=== PATIENT | male | born 1980 | race Caucasian/White ===

== ENCOUNTER 2019-07-30 08:33 | Emergency (ER) | payer BC, OTHER ==
--- NOTE | 2019-07-30 08:40 | EDM.PDOC ---
ED HPI GENERAL MEDICAL PROBLEM - General Stated Complaint: COUGH,DIFF BREATHING Time Seen by Provider: 07/30/19 08:40 Source of Information: Reports: Patient History Limitations: Reports: No Limitations - History of Present Illness INITIAL COMMENTS - FREE TEXT/NARRATIVE: Is a 39-year-old male who is complaining of an upper respiratory cough for the past 5 weeks. Cough is nonproductive but patient does feel dyspnea on exertion. He has been seen twice before at other centers and was initially started on amoxicillin and 2 weeks ago started on doxycycline. He has had no improvement in symptoms. Is any fever or chills. Is also treated with some steroid shot and albuterol inhaler over the last 2 weeks. Is not a cigarette smoker and does have any history of bronchitis or pneumonias. He has been traveling back and forth to [place] and around the counts include 234 beds at the [facility] and is exposed to approximately 50-60 people per day at work. He has not been nauseous or vomiting. She had no bloody or tarry stools. He has no swelling to his ankles or calfs. Duration: Week(s): (5), Getting Worse Location: Reports: Chest Quality: Reports: Dull Severity: Moderate Improves with: Reports: None Worsens with: Reports: Movement Associated Symptoms: Reports: Chest Pain, Cough, Shortness of Breath. Denies: cough w sputum, Fever/Chills, Nausea/Vomiting Left Chest Wall Pain Score (Numeric/FACES): 4 - Related Data Allergies Allergy/AdvReac Type Severity Reaction Status Date / Time No Known Allergies Allergy Verified 07/30/19 08:58 Home Meds: Home Meds Azithromycin 250 mg PO DAILY #6 tablet 07/30/19 [Rx] Codeine/guaiFENesin [Robitussin AC] 10 ml PO QID PRN #1 bottle 07/30/19 [Rx] Sertraline [Zoloft] 25 mg PO DAILY 07/30/19 [History] ED ROS GENERAL - Review of Systems Review Of Systems: Comprehensive ROS is negative, except as noted in HPI. ED EXAM, GENERAL - Physical Exam Exam: See Below Free Text/Narrative:: Exam: See Below Exam Limited By: No Limitations Head: Atraumatic Neck: Normal Inspection. No: Carotid Bruit, Lymphadenopathy (R) Respiratory/Chest: No Respiratory Distress, Lungs Clear, Normal Breath Sounds, No Accessory Muscle Use. No: Chest Non-Tender positive for nonproductive cough. Cardiovascular: Normal Peripheral Pulses, Regular Rate, Rhythm, No Edema, No JVD GI/Abdominal: Normal Bowel Sounds, Tender. No: Non-Tender, Splenomegaly Back Exam: Normal Inspection. No: CVA Tenderness (R) Extremities: Normal Inspection. No: No Pedal Edema Neurological: Alert, Oriented, Normal Cognition Psychiatric: Normal Affect Skin Exam: Warm Lymphatic: No Adenopathy Exam Limited By: No Limitations General Appearance: Alert, No Apparent Distress Course - Vital Signs Text/Narrative:: Radiologist is reading chest x-ray has no acute disease. I am sending patient out with a prescription for Zithromax and Robitussin-AC. He will follow-up with his PCP and and return to ER if worse or not improving. Last Recorded V/S: Last Vital Signs Temp 36.4 C 07/30/19 08:55 Pulse 105 H 07/30/19 08:55 Resp 22 H 07/30/19 08:55 BP 130/95 H 07/30/19 08:55 Pulse Ox 95 07/30/19 08:55 - Radiology Interpretation Free Text/Narrative:: No acute disease. Departure - Departure Time of Disposition: 10:06 Disposition: Home, Self-Care 01 Condition: Good Clinical Impression: Acute bronchitis - Discharge Information Instructions: Shortness of Breath, Adult, [id number], Acute Bronchitis, Adult , [id number] Referrals: PCP,None [Primary Care Provider] - Additional Instructions: The following information is given to patients seen in the emergency department who are being discharged to home. This information is to outline your options for follow-up care. We provide all patients seen in our emergency department with a follow-up referral. The need for follow-up, as well as the timing and circumstances, are variable depending upon the specifics of your emergency department visit. If you don't have a primary care physician on staff, we will provide you with a referral. We always advise you to contact your personal physician following an emergency department visit to inform them of the circumstance of the visit and for follow-up with them and/or the need for any referrals to a consulting specialist. The emergency department will also refer you to a specialist when appropriate. This referral assures that you have the opportunity for follow-up care with a specialist. All of these measure are taken in an effort to provide you with optimal care, which includes your follow-up. Under all circumstances we always encourage you to contact your private physician who remains a resource for coordinating your care. When calling for follow-up care, please make the office aware that this follow-up is from your recent emergency room visit. If for any reason you are refused follow-up, please contact the [facility] Emergency Department at and asked to speak to the emergency department charge nurse. Care Plan Goals: Return to emergency department if worse or not improving. See PCP if symptoms continue. Medications as prescribed. Sepsis Event Note - Focused Exam Vital Signs: Vital Signs Temp Pulse Resp BP Pulse Ox 07/30/19 08:55 36.4 C 105 H 22 H 130/95 H 95 Date Exam was Performed: 07/30/19 Time Exam was Performed: 10:04
--- NOTE | 2019-07-30 09:50 | CR ---
Chest: 2 views of the chest were obtained. Comparison: Prior chest x-ray of 07/11/10. Heart size and mediastinum are normal. Small nodule noted within the right lung apex which is stable. Lungs show no acute parenchymal change. Bony structures are unremarkable. Impression: 1. Nothing acute is seen on 2 view chest x-ray. Diagnostic code #2 This report was dictated in MDT
== END 2019-07-30 10:22 | disposition home or self-care (01) ==
LOC: MW.ED 08:33
DX: J20.9 Acute bronchitis, unspecified (principal)
CPT/HCPCS: 71046; 71046-26; 99284-25